=== PATIENT | female | born 1950 | race Caucasian/White ===

== ENCOUNTER 2017-11-05 21:59 | Emergency (ER) | payer OTHER ==
--- NOTE | 2017-11-05 22:33 | EDM.PDOC ---
ED HPI GENERAL MEDICAL PROBLEM - General Chief Complaint: Head Injury Stated Complaint: FELL AND EVERYTHING HURTS [id number] Time Seen by Provider: 11/05/17 22:15 Source of Information: Reports: Patient History Limitations: Reports: No Limitations - History of Present Illness INITIAL COMMENTS - FREE TEXT/NARRATIVE: This 67 yo female patient reports to the ED with her daughter due to a fall. The patient reports she was standing on a bed, changing light bulbs when she fell to the ground and hit her head. The patient reports the top of the bed is about 3 feet from the ground. The patient reports she has not had any loss of consciousness throughout the incident. The patient reports she has a large bump on the back of her head, stiffness in her neck and pain along her left side and back due to the fall. The patient reports a history of chronic back pain which has been getting better with the assistance of a chiropractor. The patient reports that she has not taken anything for her pain at this time. The patient walked into the ED. Onset: Today Duration: Minutes: Location: Reports: Head (posterior), Neck (diffuse neck pain), Back (left side paraspinal pain from mid thorax to lower back with pain radiating into her left hip) Quality: Reports: Ache, Dull Severity: Moderate Improves with: Reports: None Worsens with: Reports: None Context: Reports: Trauma (fall from 3 feet on blood thinner, hit head with neck pain) Associated Symptoms: Reports: No Other Symptoms Generalized Pain Score (Numeric/FACES): 6 - Related Data Allergies Allergy/AdvReac Type Severity Reaction Status Date / Time acetaminophen Allergy Headache Verified 11/05/15 15:07 [From Darvocet-N 100] erythromycin base Allergy Cannot Verified 12/03/13 13:29 [Erythromycin Base] Remember Penicillins Allergy Rash Verified 11/05/15 15:07 propoxyphene napsylate Allergy Cannot Verified 12/03/13 13:29 [From Darvocet-N 100] Remember red dye Allergy Rash Verified 11/05/15 15:07 tetracycline [Tetracycline] Allergy Cannot Verified 12/03/13 11:04 Remember Home Meds: Home Meds Aspirin [Adult Low Dose Aspirin EC] 81 mg PO DAILY 12/03/13 [History] Nebivolol [Bystolic] 5 mg PO DAILY 12/03/13 [History] Red Yeast Rice 2 tab PO DAILY 12/03/13 [History] Venlafaxine [Effexor XR] 150 mg PO DAILY 12/03/13 [History] Zolpidem [Ambien] 5 mg PO BEDTIME 12/03/13 [History] Ibuprofen [Wal-Profen] 200 mg PO Q4HR PRN 12/04/13 [History] Budesonide/Formoterol [Symbicort 160-4.5 MCG] 2 puff INH BID PRN 11/05/15 [ History] Clopidogrel [Plavix] 75 mg PO DAILY 11/05/15 [History] Lisinopril 5 mg PO DAILY 11/05/15 [History] Nitroglycerin 0.4 mg SL ASDIRECTED PRN 11/05/15 [History] Omeprazole 20 mg PO DAILY 11/05/15 [History] Past Medical History Cardiovascular History: Reports: High Cholesterol, Hypertension Respiratory History: Reports: Bronchitis, Recurrent Gastrointestinal History: Reports: Diverticulosis Musculoskeletal History: Reports: Back Pain, Chronic Neurological History: Reports: Migraines Psychiatric History: Reports: Depression - Infectious Disease History Infectious Disease History: Reports: Meningitis, Scarlet Fever - Past Surgical History Cardiovascular Surgical History: Reports: Coronary Artery Stent Social & Family History - Tobacco Use Smoking Status *Q: Never Smoker Second Hand Smoke Exposure: No - Alcohol Use Days Per Week of Alcohol Use: 0 - Recreational Drug Use Recreational Drug Use: No ED ROS GENERAL - Review of Systems Review Of Systems: ROS reveals no pertinent complaints other than HPI. ED EXAM, HEAD INJURY - Physical Exam Exam: See Below Exam Limited By: No Limitations General Appearance: Alert, WD/WN, Moderate Distress Head: Scalp Hematoma (posterior head) Nexus Criteria: Painful Distraction Injuries (generalized back pain, contusion to posterior scalp). No: Evidence of Intoxication, Altered Level of Consciousness, Focal Neurological Deficit Eyes: Bilateral Eye: EOMI, Normal Inspection, PERRL Ears: Normal External Exam, Normal Canal, Hearing Grossly Normal, Normal TMs Nose: Normal Inspection, Normal Mucousa, No Blood Throat/Mouth: Normal Inspection, Normal Lips, Normal Teeth, Normal Gums, Normal Oropharynx, Normal Voice, No Airway Compromise Neck: Non-Tender, Full Range of Motion, Normal Alignment, Normal Inspection Respiratory: No Respiratory Distress, Lungs Clear, Normal Breath Sounds, No Accessory Muscle Use, Chest Non-Tender Cardiovascular: Normal Peripheral Pulses, Regular Rate, Rhythm, No Edema, No Gallop, No JVD, No Murmur, No Rub GI/Abdominal Exam: Normal Bowel Sounds, Soft, Non-Tender, No Organomegaly, No Distention, No Abnormal Bruit, No Mass (Female) Exam: Deferred Rectal (Female) Exam: Deferred Back Exam: Full Range of Motion, Normal Inspection, NT Extremities: Normal Inspection, Normal Range of Motion, Non-Tender, No Pedal Edema, Normal Capillary Refill 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 nml As Tested, No Motor/Sensory Deficits, Alert, Normal Mood/Affect, Oriented x 3 Skin: Normal Color, Warm/Dry - [place] Coma Score Best Eye Response (Belkis): (4) Open Spontaneously Best Verbal Response (Belkis): (5) Oriented Best Motor Response (Belkis): (6) Obeys Commands [place] Total: 15 Course - Vital Signs Last Recorded V/S: Last Vital Signs Temp 36.6 C 11/05/17 22:08 Pulse 72 11/05/17 22:08 Resp 18 11/05/17 22:08 BP 163/74 H 11/05/17 22:08 Pulse Ox 99 11/05/17 22:08 - Orders/Labs/Meds Meds: Medications Discontinued Medications Generic Name Dose Route Start Last Admin Trade Name Freq PRN Reason Stop Dose Admin Ketorolac Tromethamine 60 mg 11/05/17 23:13 Toradol IM 11/05/17 23:14 ONETIME ONE Departure - Departure Time of Disposition: 23:18 Disposition: Home, Self-Care 01 Condition: Fair Clinical Impression: Hematoma, Chronic neck and back pain Fall Qualifiers: Encounter type: initial encounter Qualified Code(s): W19.XXXA - Unspecified fall, initial encounter - Discharge Information Instructions: Facial or Scalp Contusion, [id number], Back Pain, Adult, Easy- to-Read Forms: ED Department Discharge Care Plan Goals: The patient was advised of the examination and CT results during the visit. The patient was given an injection of Toradol while in the ED. The patient was discharged with a script for Toradol (10 mg) #20 to take 1 by mouth 4 times per day. The patient should continue to take her muscle relaxers as previously prescribed. The patient should continue to be active. If the patient has any additional symptoms or concerns, the patient should follow-up with her primary care facility or return to the emergency department.
[2017-11-05] MEDS ORDERED: Ketorolac 30 MG/ML SDV IM ONE (23:13)
== END 2017-11-05 23:33 | disposition home or self-care (01) ==
LOC: DL.ED 21:59
DX: S00.03XA Contusion of scalp, initial encounter (principal); M54.9 Dorsalgia, unspecified; M54.2 Cervicalgia; G89.29 Other chronic pain; E78.00 Pure hypercholesterolemia, unspecified; I10 Essential (primary) hypertension; Z88.6 Allergy status to analgesic agent; Z88.1 Allergy status to other antibiotic agents; Z88.0 Allergy status to penicillin; Z91.041 Radiographic dye allergy status; Z79.82 Long term (current) use of aspirin; Z79.899 Other long term (current) drug therapy; W17.89XA Other fall from one level to another, initial encounter
CPT/HCPCS: 70450; 72125; 96372; 99284; J1885

== ENCOUNTER 2019-10-13 15:26 | Emergency (ER) | payer MEDICARE, BC ==
[2019-10-13] MEDS ORDERED: Albuterol 0.083% 2.5 MG/3 ML Neb Soln INH ONE (15:27)
[2019-10-13] MEDS ORDERED: Albuterol/Ipratropium 3.0-0.5 MG/3 ML Neb Soln NEB ONE ×2 (16:24→17:42)
[2019-10-13] MEDS ORDERED: methylPREDNISolone Sodium Succinate 125 MG/2 ML SDV IVPUSH ONE (16:24)
--- NOTE | 2019-10-13 16:27 | EDM.PDOC ---
ED HPI GENERAL MEDICAL PROBLEM - General Chief Complaint: Respiratory Problem Stated Complaint: DEEP CHEST COLD Time Seen by Provider: 10/13/19 16:25 Source of Information: Reports: Patient History Limitations: Reports: No Limitations - History of Present Illness INITIAL COMMENTS - FREE TEXT/NARRATIVE: feeling sick past 2 months then 2 weeks ago started deep cough, non smoker, no chest pains but feels congested. Back Pain Score (Numeric/FACES): 5 - Related Data Allergies Allergy/AdvReac Type Severity Reaction Status Date / Time acetaminophen Allergy Headache Verified 10/13/19 16:15 [From Darvocet-N 100] erythromycin base Allergy Cannot Verified 10/13/19 16:15 [Erythromycin Base] Remember Penicillins Allergy Rash Verified 10/13/19 16:15 propoxyphene napsylate Allergy Cannot Verified 10/13/19 16:15 [From Darvocet-N 100] Remember red dye Allergy Rash Verified 10/13/19 16:15 tetracycline [Tetracycline] Allergy Cannot Verified 10/13/19 16:15 Remember Home Meds: Home Meds Nebivolol [Bystolic] 10 mg PO DAILY 12/03/13 [History] Red Yeast Rice 2 tab PO DAILY 12/03/13 [History] Venlafaxine [Effexor XR] 150 mg PO DAILY 12/03/13 [History] Zolpidem [Ambien] 5 mg PO BEDTIME 12/03/13 [History] Ibuprofen [Wal-Profen] 200 mg PO Q4HR PRN 12/04/13 [History] Budesonide/Formoterol [Symbicort 160-4.5 MCG] 2 puff INH BID PRN 11/05/15 [ History] Clopidogrel [Plavix] 75 mg PO DAILY 11/05/15 [History] Lisinopril 5 mg PO DAILY 11/05/15 [History] Nitroglycerin 0.4 mg SL ASDIRECTED PRN 11/05/15 [History] Amoxicillin 500 mg PO BID 10/13/19 [History] Aspirin [Aspirin EC] 325 mg PO DAILY 10/13/19 [History] Gabapentin [Neurontin] 500 mg PO BID 10/13/19 [History] Pantoprazole [ProTONIX] 40 mg PO DAILY 10/13/19 [History] Past Medical History HEENT History: Reports: Impaired Vision Cardiovascular History: Reports: High Cholesterol, Hypertension Respiratory History: Reports: Bronchitis, Recurrent Gastrointestinal History: Reports: Diverticulosis Genitourinary History: Reports: None 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 Musculoskeletal History: Reports: Back Pain, Chronic Neurological History: Reports: Migraines Psychiatric History: Reports: Depression Endocrine/Metabolic History: Reports: None Hematologic History: Reports: None Immunologic History: Reports: None Oncologic (Cancer) History: Reports: None Dermatologic History: Reports: None - Infectious Disease History Infectious Disease History: Reports: Meningitis, Scarlet Fever - Past Surgical History Head Surgeries/Procedures: Reports: None Cardiovascular Surgical History: Reports: Coronary Artery Stent, Other (See Below) Other Cardiovascular Surgeries/Procedures: stents x 3 and angioplasty Social & Family History - Family History Family Medical History: Noncontributory - Tobacco Use Smoking Status *Q: Former Smoker Years of Tobacco use: 10 Packs/Tins Daily: 0 Used Tobacco, but Quit: Yes Month/Year Tobacco Last Used: 00 Second Hand Smoke Exposure: No - Caffeine Use Caffeine Use: Reports: None - Recreational Drug Use Recreational Drug Use: No ED ROS GENERAL - Review of Systems Review Of Systems: Comprehensive ROS is negative, except as noted in HPI. ED EXAM, GENERAL - Physical Exam Exam: See Below Exam Limited By: No Limitations General Appearance: Alert, WD/WN, Mild Distress, Moderate Distress, Other ( episodic cough spasms) Ears: Hearing Grossly Normal Throat/Mouth: Normal Voice, No Airway Compromise Head: Atraumatic Neck: Non-Tender, Full Range of Motion Respiratory/Chest: No Accessory Muscle Use, Decreased Breath Sounds, Rhonchi, Wheezing Cardiovascular: Regular Rate, Rhythm GI/Abdominal: Soft, Non-Tender Neurological: Alert, Oriented, Normal Cognition, Normal Gait, No Motor/Sensory Deficits Psychiatric: Normal Affect, Normal Mood Skin Exam: Warm, Dry, Normal Color Lymphatic: No Adenopathy Course - Vital Signs Last Recorded V/S: Last Vital Signs Temp 36.6 C 10/13/19 16:05 Pulse 64 10/13/19 16:35 Resp 20 10/13/19 16:05 BP 169/84 H 10/13/19 16:05 Pulse Ox 97 10/13/19 16:05 - Orders/Labs/Meds Orders: Active Orders 24 hr Category Date Time Status RT Aerosol Therapy [RC] ASDIRECTED Care 10/13/19 16:24 Active RT Aerosol Therapy [RC] ASDIRECTED Care 10/13/19 17:42 Active Chest 2V [CR] Urgent Exams 10/13/19 16:27 Taken Sodium Chloride 0.9% [Normal Saline] 1,000 ml Med 10/13/19 16:30 Active IV ASDIRECTED Medication Orders Sodium Chloride (Normal Saline) 1,000 mls @ 500 mls/hr IV ASDIRECTED BENITO Last Admin: 10/13/19 16:39 Dose: 500 mls/hr Labs: Laboratory Tests 10/13/19 10/13/19 10/13/19 Range/Units 16:29 16:29 16:29 WBC 6.6 (5.0-10.0) 10^3/uL RBC 4.22 (4.2-5.4) 10^6/uL Hgb 12.5 (12.0-16.0) g/dL Hct 37.1 (37.0-47.0) % MCV 87.9 (80-100) fL MCH 29.6 (27.0-34.0) pg MCHC 33.7 (33.0-35.0) g/dL Plt Count 365 (150-450) 10^3/uL Neut % (Auto) 56.4 (42.2-75.2) % Lymph % (Auto) 26.8 (20.5-50.1) % [place] % (Auto) 10.3 H (2-8) % Eos % (Auto) 5.1 H (1.0-3.0) % Baso % (Auto) 1.4 H (0.0-1.0) % Sodium 139 (135-145) mmol/L Potassium 4.6 (3.6-5.0) mmol/L Chloride 103 (101-111) mmol/L Carbon Dioxide 27.0 (21.0-31.0) mmol/L Anion Gap 13.6 BUN 15 (7-18) mg/dL Creatinine 1.0 (0.6-1.3) mg/dL Est Cr Clr Drug Dosing 48.45 mL/min Estimated GFR (MDRD) 55 BUN/Creatinine Ratio 15.00 Glucose 92 (74-105) mg/dL Lactic Acid 1.6 (0.5-2.0) mmol/L Calcium 9.1 (8.4-10.2) mg/dl Total Bilirubin 0.4 (0.2-1.0) mg/dL AST 19 (10-42) IU/L ALT 14 (10-60) IU/L Alkaline Phosphatase 63 (42-121) IU/L B-Natriuretic Peptide 71 (0-100) pg/ml Total Protein 7.6 (6.7-8.2) g/dl Albumin 4.0 (3.2-5.5) g/dl Globulin 3.6 Albumin/Globulin Ratio 1.11 Meds: Medications Generic Name Dose Route Start Last Admin Trade Name Freq PRN Reason Stop Dose Admin Sodium Chloride 1,000 mls @ 500 mls/hr 10/13/19 16:30 10/13/19 16:39 Normal Saline IV 500 mls/hr ASDIRECTED BENITO Administration Discontinued Medications Generic Name Dose Route Start Last Admin Trade Name Freq PRN Reason Stop Dose Admin Albuterol/Ipratropium 3 ml 10/13/19 16:24 10/13/19 16:34 Duoneb 3.0-0.5 Mg/3 Ml NEB 10/13/19 16:25 3 ml ONETIME ONE Administration Albuterol/Ipratropium 3 ml 10/13/19 17:42 10/13/19 18:01 Duoneb 3.0-0.5 Mg/3 Ml NEB 10/13/19 17:43 3 ml ONETIME ONE Administration Methylprednisolone Sodium Succinate 125 mg 10/13/19 16:24 10/13/19 16:39 Solu-Medrol IVPUSH 10/13/19 16:25 125 mg ONETIME ONE Administration - Re-Assessments/Exams Free Text/Narrative Re-Assessment/Exam: 10/13/19 17:45 results discussed with pt who is feeling better s/p duo + IV Rx 10/13/19 18:25 re-exam; s/p 2nd duo = better Departure - Departure Time of Disposition: 18:25 Disposition: Home, Self-Care 01 Condition: Good Clinical Impression: Bronchospasm with bronchitis, acute - Discharge Information Instructions: Acute Bronchitis, Adult, [id number] Forms: ED Department Discharge Additional Instructions: 1) rest 2) don't sleep flat at night 3) drink lots of liquids 4) take neb treatment 4 times daily for cough 5) follow up at clinic rx given; albuterol 2.5mg solution qid prn phenergan codeine syrup qid prn rx togo; albuterol 2.5mg solution x 2 Sepsis Event Note - Evaluation Sepsis Screening Result: No Definite Risk - Focused Exam Vital Signs: Vital Signs Temp Pulse Resp BP Pulse Ox 10/13/19 16:35 64 10/13/19 16:05 36.6 C 84 20 169/84 H 97 Date Exam was Performed: 10/13/19 Time Exam was Performed: 18:25 - My Orders Last 24 Hours: My Active Orders 10/13/19 16:24 RT Aerosol Therapy [RC] ASDIRECTED 10/13/19 16:27 Chest 2V [CR] Urgent 10/13/19 16:30 Sodium Chloride 0.9% [Normal Saline] 1,000 ml IV ASDIRECTED 10/13/19 17:42 RT Aerosol Therapy [RC] ASDIRECTED - Assessment/Plan Last 24 Hours: My Active Orders 10/13/19 16:24 RT Aerosol Therapy [RC] ASDIRECTED 10/13/19 16:27 Chest 2V [CR] Urgent 10/13/19 16:30 Sodium Chloride 0.9% [Normal Saline] 1,000 ml IV ASDIRECTED 10/13/19 17:42 RT Aerosol Therapy [RC] ASDIRECTED
[2019-10-13] MEDS ORDERED: Sodium Chloride 0.9% 1,000 ML IV SCH (16:30)
[2019-10-13 17:11] LABS: ANION GAP 13.6
[2019-10-13] MEDS ORDERED: Albuterol 0.083% 2.5 MG/3 ML Neb Soln ONE (18:38)
== END 2019-10-13 18:48 | disposition home or self-care (01) ==
LOC: DL.ED 15:26
DX: J20.9 Acute bronchitis, unspecified (principal); I10 Essential (primary) hypertension; F32.9 Major depressive disorder, single episode, unspecified; Z79.02 Long term (current) use of antithrombotics/antiplatelets; Z79.899 Other long term (current) drug therapy; Z91.041 Radiographic dye allergy status; Z88.1 Allergy status to other antibiotic agents; Z87.891 Personal history of nicotine dependence
CPT/HCPCS: 36415; 71046; 80053; 83605; 83880; 85025; 94640; 96361; 96374; 99283; 99284; J2930; J7030; J7613-GY; J7620-GY

== ENCOUNTER 2021-05-25 09:45 | Emergency (ER) | payer MEDICARE ==
[2021-05-25] MEDS ORDERED: Oxymetazoline 0.05% Nasal Spray 30 ML Bottle NAS ONE (09:50)
--- NOTE | 2021-05-25 10:04 | EDM.PDOC ---
ED HPI GENERAL MEDICAL PROBLEM - General Stated Complaint: [id number] BLOODY NOSE FOR OVER AN HOUR Time Seen by Provider: 05/25/21 09:50 Source of Information: Reports: Patient History Limitations: Reports: No Limitations - History of Present Illness INITIAL COMMENTS - FREE TEXT/NARRATIVE: This 70 yo female patient reports to the ED with a bloody nose. The patient reports she has had 3 bloody noses over the past week. The patient reports her current symptoms have continued for the past hour. The patient has attempted to use an ice pack and direct pressure to her nose, but has continued to bleed. The patient reports she has been taking her blood pressure medications as prescribed. The patient reports she takes aspirin and ibuprofen for pain. The patient also takes an 81 mg aspirin daily. The patient denies any recent trauma to her nose or face. Onset: Today Duration: Hour(s):, Constant Location: Reports: Face Quality: Reports: Other Severity: Moderate Improves with: Reports: None Worsens with: Reports: None Context: Reports: Other Associated Symptoms: Reports: No Other Symptoms - Related Data Allergies Allergy/AdvReac Type Severity Reaction Status Date / Time acetaminophen Allergy Headache Verified 05/25/21 10:12 [From Darvocet-N 100] erythromycin base Allergy Cannot Verified 05/25/21 10:12 [Erythromycin Base] Remember Penicillins Allergy Rash Verified 05/25/21 10:12 propoxyphene napsylate Allergy Cannot Verified 05/25/21 10:12 [From Darvocet-N 100] Remember red dye Allergy Rash Verified 05/25/21 10:12 tetracycline [Tetracycline] Allergy Cannot Verified 05/25/21 10:12 Remember Home Meds: Home Meds Nebivolol [Bystolic] 10 mg PO DAILY 12/03/13 [History] Red Yeast Rice 2 tab PO DAILY 12/03/13 [History] Venlafaxine [Effexor XR] 150 mg PO DAILY 12/03/13 [History] Zolpidem [Ambien] 5 mg PO BEDTIME 12/03/13 [History] Ibuprofen [Wal-Profen] 200 mg PO Q4HR PRN 12/04/13 [History] Budesonide/Formoterol [Symbicort 160-4.5 MCG] 2 puff INH BID PRN 11/05/15 [History] Lisinopril 5 mg PO DAILY 11/05/15 [History] Nitroglycerin 0.4 mg SL ASDIRECTED PRN 11/05/15 [History] Aspirin [Aspirin EC] 325 mg PO DAILY 10/13/19 [History] Gabapentin [Neurontin] 500 mg PO BID 10/13/19 [History] Pantoprazole [ProTONIX] 40 mg PO DAILY 10/13/19 [History] Past Medical History HEENT History: Reports: Impaired Vision Cardiovascular History: Reports: High Cholesterol, Hypertension Respiratory History: Reports: Bronchitis, Recurrent Gastrointestinal History: Reports: Diverticulosis Genitourinary History: Reports: None 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 Musculoskeletal History: Reports: Back Pain, Chronic Neurological History: Reports: Migraines Psychiatric History: Reports: Depression Endocrine/Metabolic History: Reports: None Hematologic History: Reports: None Immunologic History: Reports: None Oncologic (Cancer) History: Reports: None Dermatologic History: Reports: None - Infectious Disease History Infectious Disease History: Reports: Meningitis, Scarlet Fever - Past Surgical History Head Surgeries/Procedures: Reports: None Cardiovascular Surgical History: Reports: Coronary Artery Stent, Other (See Below) Other Cardiovascular Surgeries/Procedures: stents x 3 and angioplasty Social & Family History - Family History Family Medical History: No Pertinent Family History - Caffeine Use Caffeine Use: Reports: None ED ROS ENT - Review of Systems Review Of Systems: Comprehensive ROS is negative, except as noted in HPI. ED EXAM, ENT - Physical Exam Exam: See Below Exam Limited By: No Limitations General Appearance: Alert, WD/WN, Mild Distress Eye Exam: Bilateral Eye: EOMI, Normal Inspection, PERRL Ears: Normal External Exam, Normal Canal, Hearing Grossly Normal, Normal TMs Nose: Active Bleeding (left nare) Mouth/Throat: Normal Gums, Normal Lips, Normal Teeth, Other (Blood in the posterior pharynx) Head: Atraumatic, Normocephalic Neck: Normal Inspection, Supple, Non-Tender, Full Range of Motion Respiratory/Chest: No Respiratory Distress, Lungs Clear, Normal Breath Sounds, No Accessory Muscle Use, Chest Non-Tender Cardiovascular: Normal Peripheral Pulses, Regular Rate, Rhythm, No Edema, No Gallop, No JVD, No Murmur, No Rub GI/Abdominal: Normal Bowel Sounds, Soft, Non-Tender, No Organomegaly, No Distention, No Abnormal Bruit, No Mass (Female) Exam: Deferred Rectal (Female) Exam: Deferred Back: Normal Inspection, Full Range of Motion Extremities: Normal Inspection, Normal Range of Motion, Non-Tender, No Pedal Edema, Normal Capillary Refill Neurological: Alert, Oriented, CN II-XII Intact, Normal Cognition, Normal Gait, Normal Reflexes, No Motor/Sensory Deficits Psychiatric: Normal Affect, Normal Mood Skin: Warm, Dry, Intact, Normal Color, No Rash Lymphatic: No Adenopathy Course - Vital Signs Last Recorded V/S: Last Vital Signs Temp 96.1 F L 05/25/21 09:57 Pulse 103 H 05/25/21 09:57 Resp 20 05/25/21 09:57 BP 145/98 H 05/25/21 09:57 Pulse Ox 96 05/25/21 09:57 - Orders/Labs/Meds Meds: Medications Discontinued Medications Generic Name Dose Route Start Last Admin Trade Name Gonzálezq PRN Reason Stop Dose Admin Oxymetazoline HCl 1 ml 05/25/21 09:50 05/25/21 09:56 Oxymetazoline 0.05% Nasal [place] 30 Ml Bottle LIZBETH 05/25/21 09:51 1 spray ONETIME ONE Administration Departure - Departure Time of Disposition: 10:45 Disposition: Home, Self-Care 01 Condition: Fair Clinical Impression: Nosebleed - Discharge Information *PRESCRIPTION DRUG MONITORING PROGRAM REVIEWED*: Not Applicable *COPY OF PRESCRIPTION DRUG MONITORING REPORT IN PATIENT PABLO: Not Applicable Instructions: Nosebleed, Adult, [id number] Forms: ED Department Discharge Care Plan Goals: The patient was advised of the examination results during the visit. The patient's nasal passages were sprayed with Afrin with significant improvement in the patients bleeding. The patient would prefer not to have a nasal rocket used at this time. The patient was discharged with the remaining bottle of Afrin to use if the bleeding increased. The patient was also encouraged to apply a small amount of Aquaphor to each nare nightly to increase moisture to the surface. If the patient has any additional symptoms or concerns, the patient should either return to the emergency department or visit her primary care facility. Sepsis Event Note (ED) - Evaluation Sepsis Screening Result: No Definite Risk - Focused Exam Vital Signs: Vital Signs Temp Pulse Resp BP Pulse Ox 05/25/21 09:57 96.1 F L 103 H 20 145/98 H 96
== END 2021-05-25 11:11 | disposition home or self-care (01) ==
LOC: DL.ED 09:45
DX: R04.0 Epistaxis (principal); I10 Essential (primary) hypertension; Z88.1 Allergy status to other antibiotic agents; Z88.0 Allergy status to penicillin; Z88.8 Allergy status to other drugs, medicaments and biological substances; Z88.5 Allergy status to narcotic agent; Z79.82 Long term (current) use of aspirin; Z79.899 Other long term (current) drug therapy
CPT/HCPCS: 99283; A9270